=== PATIENT | female | born 1995 ===

== ENCOUNTER 2022-04-18 19:54 | Emergency (ER) | payer SELFPAY ==
[2022-04-18 20:01] VITALS: BP 127/81; PULSE 102; RESP 16; TEMP 36.6; O2SAT 98
--- NOTE | 2022-04-18 20:19 | ED.URI ---
HPI - URI/Sore Throat General Chief Complaint: Upper Respiratory Infection Stated Complaint: Cough/Pain in Back Time Seen by Provider: 04/18/22 20:19 Source: patient and RN notes reviewed Mode of arrival: ambulatory Limitations: no limitations History of Present Illness HPI Narrative: 26-year-old female presented with for complaint of cough and congestion over the past several days. She endorses a cough causes mid chest and back pain. Cough is nonproductive. Denies shortness of breath, wheezing, vomiting, fevers or chills. She does not know what to take for symptoms. She is currently . Patient does not speak Serbian, requests translate. MD elicited complaint: cough Related Data Home Medications Medication Instructions Recorded Confirmed Iron Supplement 04/18/22 folic acid 04/18/22 Allergies Allergy/AdvReac Type Severity Reaction Status Date / Time No Known Allergies Allergy Verified 04/18/22 19:58 Review of Systems Review of Systems: ROS per HPI Exam Narrative: GENERAL: well-appearing EYES: PERRLA, conjunctivae clear ENT: Mucous membranes moist. TMs pearly [place] with dull light reflex bilaterally; no tragal tenderness. CHEST: Clear to auscultation, breath sounds equal. No wheezing, rhonchi, rales, or stridor. No respiratory distress, speaks in full sentences. Nontender chest wall. HEART: Regular rate and rhythm. No murmur heard. SKIN: Warm, dry, no rash. NEURO: Alert and oriented x3. PSYCH: Normal mood and affect Course Course Emergency Course: Patient is aware of diagnosis, understands and agrees to treatment plan. Anticipatory guidance given. Patient agrees to follow-up as directed and is aware of reasons to seek care at the emergency department. Portions of this record may have been created with voice recognition software Level of Care: Express Care Visit Vital Signs Vital signs: Vital Signs Temperature 97.8 F 04/18/22 20:01 Pulse Rate 102 H 04/18/22 20:01 Respiratory Rate 16 04/18/22 20:01 Blood Pressure 127/81 04/18/22 20:01 Pulse Oximetry 98 04/18/22 20:01 Oxygen Delivery Room Air 04/18/22 20:01 Temperature 97.8 F 04/18/22 20:01 Pulse Rate 102 H 04/18/22 20:01 Respiratory Rate 16 04/18/22 20:01 Blood Pressure 127/81 04/18/22 20:01 Pulse Oximetry 98 04/18/22 20:01 Oxygen Delivery Room Air 04/18/22 20:01 reviewed MDM - URI/Sore Throat Differential Diagnosis Differential diagnosis: Likely upper respiratory infection, sinusitis and viral infection Discharge Plan Discharge Clinical Impression: Upper respiratory infection Patient Disposition: Home, Self-Care Condition: Stable Instructions: Antibiotic Form, Upper Respiratory Infection (ED) Additional Instructions: Recommend Flonase spray and Zyrtec (or Claritin/Citlalli) for sinus congestion over the counter Cough syrup may cause drowsiness; avoid driving or take it at night time. Tylenol every 8 hours as needed for pain If no improvement with the above medications, you can start the antibiotics; remember it may lead to diarrhea/vomiting in the infant Follow up with your primary care provider in 1 week. Go to the ER for worsening symptoms or concerns. Prescriptions: New azithromycin [Zithromax Z-Meir] 250 mg tablet See Rx Instructions .ROUTE .COMPLEX Qty: 6 0RF Rx Instructions: For 250 mg dose pack: take 500 mg today (day 1), then 250 mg for 4 days (days 2-5) No Action Iron Supplement folic acid Follow-up/Referrals: PHYSICIAN,WIND[employer] INSTALLER [Primary Care Provider] - Time of Disposition: 20:41
== END 2022-04-18 20:47 | disposition home or self-care (01) ==
PROVIDERS: Emergency Provider Nurse Practitioner Family
DX: J06.9 Acute upper respiratory infection, unspecified (principal)
CPT/HCPCS: 99213; G0463